=== PATIENT | female | born 1995 | race Hispanic/Latino ===

== ENCOUNTER 2021-05-24 10:54 | Inpatient (IN) | payer MEDICAID ==
[~2021-05-24] VITALS: Ht 149.9 cm; Wt 35.7 kg
[2021-05-24 12:00] LABS: BASOPHILS % (AUTO) 0.1 % (0.0-5.0); EOSINOPHILS % (AUTO) 0.1 % (0.0-8.0); HEMATOCRIT 36.8 % (36-48); LYMPHOCYTES % (AUTO) 20.9 % (21.0-51.0); MEAN CORPUSCULAR HEMOGLOBIN 29.8 pg (27.0-33.0); MEAN CORPUSCULAR HGB CONC 32.3 g/dL (32.0-36.0); MONOCYTES % (AUTO) 6.8 % (3.0-13.0); NEUTROPHILS % (AUTO) 71.9 % (40.0-77.0); PLATELET COUNT (AUTO) 126 K/uL (130-400); RED CELL DISTRIBUTION WIDTH 12.7 % (11.0-15.5); WHITE BLOOD COUNT (AUTO) 8.4 K/uL (4.8-10.8)
[2021-05-24 12:13] LABS: CREATININE 0.5 mg/dL (0.5-1.5); POTASSIUM 3.7 mmol/L (3.5-5.1)
[2021-05-24 12:18] LABS: ALBUMIN 3.8 g/dL (3.5-5.0); BILIRUBIN,TOTAL 0.2 mg/dL (0.2-1.0); TOTAL PROTEIN, SERUM 7.7 g/dL (6.0-8.3)
[2021-05-24] MEDS ORDERED: ONDANSETRON 4MG INJ IVP ONE (16:30)
[2021-05-24] MEDS ORDERED: MORPHINE 2 MG SYG IVP ONE (16:30)
[2021-05-24] MEDS ORDERED: ACETAMINOPHEN 325 MG SUPPOSITORY RC PRN (21:30)
[2021-05-24] MEDS ORDERED: DiphenhydrAMINE HCL 50 MG/ML VIAL IV PRN (21:30)
[2021-05-24] MEDS ORDERED: ONDANSETRON 4MG INJ IV PRN (21:30)
[2021-05-24] MEDS ORDERED: MORPHINE 4 MG SYG IV PRN (21:30)
[2021-05-24] MEDS: DEXTROSE 5 %-0.45 % NACL 1,000 ML IV SCH (23:00)
[2021-05-25] MEDS: ZOSYN 3.375GM+NS 50ML 50 ML IV SCH ×3 (04:48→21:16)
[2021-05-25 06:11] VITALS: BP 109/40
[2021-05-25 07:30] LABS: MEAN CORPUSCULAR HEMOGLOBIN 30.5 pg (27.0-33.0); MEAN CORPUSCULAR HGB CONC 32.6 g/dL (32.0-36.0); MEAN CORPUSCULAR VOLUME 93.6 fL (79-99); RED BLOOD CELL COUNT(AUTO) 3.74 MIL/uL (4.00-5.50); RED CELL DISTRIBUTION WIDTH 12.9 % (11.0-15.5); WHITE BLOOD COUNT (AUTO) 5.1 K/uL (4.8-10.8)
[2021-05-25 07:47] LABS: CREATININE 0.5 mg/dL (0.5-1.5); POTASSIUM 3.9 mmol/L (3.5-5.1)
[2021-05-25 08:00] VITALS: BP 96/59
[2021-05-25] MEDS ORDERED: FAMOTIDINE 20MG VIAL IV SCH (08:00)
[2021-05-25 12:00] VITALS: BP 118/68
[2021-05-25 16:00] VITALS: BP 106/75
[2021-05-25] MEDS: DEXTROSE 5 %-0.45 % NACL 1,000 ML IV SCH (17:30)
[2021-05-25] MEDS ORDERED: [UNRECOGNIZED DRUG - REMARK] TP SCH (17:30)
[2021-05-25] MEDS ORDERED: [UNRECOGNIZED DRUG - CODE] TP (17:48)
[2021-05-25] MEDS ORDERED: GLYC1SOL GT (17:48)
[2021-05-25] MEDS ORDERED: LEVE25PO GT (17:48)
[2021-05-25] MEDS ORDERED: ZINC57OI4 TP (17:48)
[2021-05-25] MEDS ORDERED: CETI-261 GT (17:48)
[2021-05-25] MEDS ORDERED: NYST15PO3 TP (17:48)
[2021-05-25] MEDS ORDERED: SENN8.6T32 GT (17:48)
[2021-05-25] MEDS ORDERED: ESOM40VI IV (17:48)
[2021-05-25] MEDS ORDERED: MONT10TA32 GT (17:48)
[2021-05-25] MEDS ORDERED: ZINC OXIDE OINT 30GM TUBE TP PRN (18:30)
[2021-05-25] MEDS ORDERED: COMPOUND IV MISC 1 EACH IVSOLN MISC PRN (18:30)
[2021-05-25 20:16] VITALS: BP 112/61
[2021-05-25] MEDS ORDERED: [UNRECOGNIZED DRUG - OTHER] IV ONE (21:00)
[2021-05-25] MEDS ORDERED: LEVETIRACETAM IV ONE (21:00)
[2021-05-25 23:41] VITALS: BP 136/52
[2021-05-26 04:03] VITALS: BP 100/50
[2021-05-26] MEDS: ZOSYN 3.375GM+NS 50ML 50 ML IV SCH ×2 (06:00→20:38)
[2021-05-26 06:09] LABS: BASOPHILS % (AUTO) 0.2 % (0.0-5.0); EOSINOPHILS % (AUTO) 0.7 % (0.0-8.0); HEMATOCRIT 33.9 % (36-48); LYMPHOCYTES % (AUTO) 39.5 % (21.0-51.0); MEAN CORPUSCULAR HEMOGLOBIN 30.1 pg (27.0-33.0); MEAN CORPUSCULAR HGB CONC 32.7 g/dL (32.0-36.0); MEAN CORPUSCULAR VOLUME 91.9 fL (79-99); MONOCYTES % (AUTO) 11.2 % (3.0-13.0); NEUTROPHILS % (AUTO) 48.4 % (40.0-77.0); PLATELET COUNT (AUTO) 126 K/uL (130-400); RED BLOOD CELL COUNT(AUTO) 3.69 MIL/uL (4.00-5.50); RED CELL DISTRIBUTION WIDTH 12.6 % (11.0-15.5); WHITE BLOOD COUNT (AUTO) 4.6 K/uL (4.8-10.8)
[2021-05-26 06:19] LABS: ALBUMIN 3.4 g/dL (3.5-5.0); BILIRUBIN,TOTAL 0.4 mg/dL (0.2-1.0); CREATININE 0.4 mg/dL (0.5-1.5); POTASSIUM 3.6 mmol/L (3.5-5.1); TOTAL PROTEIN, SERUM 6.9 g/dL (6.0-8.3)
[2021-05-26 07:30] VITALS: BP 102/84
[2021-05-26] MEDS ORDERED: LEVETIRACETAM 100 MG/ML 5 ML UDCUP JT SCH (09:00)
[2021-05-26] MEDS: PANTOPRAZOLE 40 MG/VIAL IVP SCH (10:15)
[2021-05-26 11:30] VITALS: BP 120/86
[2021-05-26] MEDS ORDERED: SENNOSIDES 8.6 MG TABLET GT PRN (12:00)
[2021-05-26] MEDS: DEXTROSE 5 %-0.45 % NACL 1,000 ML IV SCH (13:30)
[2021-05-26] MEDS ORDERED: GLYCOPYRROLATE 1 MG PEG SCH (14:00)
[2021-05-26 15:30] VITALS: BP 95/48
[2021-05-26] MEDS: GLYCOPYRROLATE 1 MG/5 ML SYRINGE IM SCH (16:45)
[2021-05-26 20:00] VITALS: BP 86/59
[2021-05-26] MEDS: LEVETIRACETAM IV SCH (20:39)
[2021-05-26] MEDS: [UNRECOGNIZED DRUG - OTHER] IV SCH (20:39)
[2021-05-26] MEDS: MONTELUKAST SODIUM 10 MG TAB GT SCH (21:00)
[2021-05-26] MEDS: CETIRIZINE HCL 1 MG PEG SCH (21:00)
[2021-05-26] MEDS: 0.9%NACL 50ML 50 ML IV SCH (21:54)
[2021-05-27] VITALS (21 sets, daily range): BP systolic 85–122; BP diastolic 27–84
[2021-05-27 04:50] LABS: EOSINOPHILS % (AUTO) 1.1 % (0.0-8.0); HEMATOCRIT 33.4 % (36-48); LYMPHOCYTES % (AUTO) 40.9 % (21.0-51.0); MEAN CORPUSCULAR HEMOGLOBIN 29.7 pg (27.0-33.0); MEAN CORPUSCULAR VOLUME 92.8 fL (79-99); MONOCYTES % (AUTO) 9.2 % (3.0-13.0); NEUTROPHILS % (AUTO) 48.6 % (40.0-77.0); PLATELET COUNT (AUTO) 123 K/uL (130-400); RED CELL DISTRIBUTION WIDTH 12.4 % (11.0-15.5); WHITE BLOOD COUNT (AUTO) 4.4 K/uL (4.8-10.8)
[2021-05-27] MEDS: 0.9%NACL 50ML 50 ML IV SCH ×3 (05:20→21:20)
[2021-05-27] MEDS: ZOSYN 3.375GM+NS 50ML 50 ML IV SCH ×3 (05:20→21:20)
[2021-05-27 05:21] LABS: ALBUMIN 3.4 g/dL (3.5-5.0); BILIRUBIN,TOTAL 0.5 mg/dL (0.2-1.0); CREATININE 0.5 mg/dL (0.5-1.5); POTASSIUM 3.3 mmol/L (3.5-5.1); TOTAL PROTEIN, SERUM 6.9 g/dL (6.0-8.3)
[2021-05-27] MEDS ORDERED: POTASSIUM CHLORIDE 20MEQ/100ML 100 ML IV PRN (06:00)
[2021-05-27] MEDS ORDERED: LIDOCAINE HCL-MPF 1% 2ML VIAL IV PRN (06:00)
[2021-05-27] MEDS ORDERED: POTASSIUM CHLORIDE 20MEQ/100ML 100 ML IV ONE (06:45)
[2021-05-27] MEDS: LEVETIRACETAM IV SCH ×2 (10:26→21:20)
[2021-05-27] MEDS: [UNRECOGNIZED DRUG - OTHER] IV SCH ×2 (10:26→21:20)
[2021-05-27] MEDS: PANTOPRAZOLE 40 MG/VIAL IVP SCH (10:26)
[2021-05-27] MEDS: DEXTROSE 5 %-0.45 % NACL 1,000 ML IV SCH (10:27)
[2021-05-27] MEDS ORDERED: FENTANYL CITRATE PF 50 MCG/1 ML 2ML VIAL ONE (11:01)
[2021-05-27] MEDS ORDERED: PROPOFOL 10 MG/ML 20ML VIAL IV ONE (11:01)
[2021-05-27] MEDS: GLYCOPYRROLATE 1 MG/5 ML SYRINGE IM SCH (14:19)
[2021-05-27] MEDS ORDERED: POTASSIUM CHLORIDE 10% ELIXIR 20 MEQ/15 ML UDCUP ONE (19:53)
[2021-05-27] MEDS ORDERED: POTASSIUM CHLORIDE 10% ELIXIR 20 MEQ/15 ML UDCUP PO PRN (20:00)
[2021-05-27] MEDS: CETIRIZINE HCL 1 MG PEG SCH (21:00)
[2021-05-27] MEDS: MONTELUKAST SODIUM 10 MG TAB GT SCH (21:19)
[2021-05-28] VITALS: BP 113/60
[2021-05-28 04:00] VITALS: BP 99/63
[2021-05-28] MEDS: ZOSYN 3.375GM+NS 50ML 50 ML IV SCH (04:58)
[2021-05-28] MEDS: 0.9%NACL 50ML 50 ML IV SCH (04:59)
[2021-05-28 05:28] LABS: BASOPHILS % (AUTO) 0.2 % (0.0-5.0); EOSINOPHILS % (AUTO) 1.4 % (0.0-8.0); HEMATOCRIT 33.6 % (36-48); LYMPHOCYTES % (AUTO) 38.3 % (21.0-51.0); MEAN CORPUSCULAR VOLUME 90.8 fL (79-99); MONOCYTES % (AUTO) 11.4 % (3.0-13.0); NEUTROPHILS % (AUTO) 48.5 % (40.0-77.0); PLATELET COUNT (AUTO) 135 K/uL (130-400); RED CELL DISTRIBUTION WIDTH 12.6 % (11.0-15.5); WHITE BLOOD COUNT (AUTO) 4.8 K/uL (4.8-10.8)
[2021-05-28] MEDS: DEXTROSE 5 %-0.45 % NACL 1,000 ML IV SCH (05:30)
[2021-05-28 05:47] LABS: ALBUMIN 3.4 g/dL (3.5-5.0); BILIRUBIN,TOTAL 0.4 mg/dL (0.2-1.0); CREATININE 0.4 mg/dL (0.5-1.5); TOTAL PROTEIN, SERUM 7.1 g/dL (6.0-8.3)
[2021-05-28 08:00] VITALS: BP 126/63
[2021-05-28] MEDS: [UNRECOGNIZED DRUG - OTHER] IV SCH (09:00)
[2021-05-28] MEDS: LEVETIRACETAM IV SCH (09:00)
[2021-05-28] MEDS: PANTOPRAZOLE 40 MG/VIAL IVP SCH (10:39)
[2021-05-28 12:01] VITALS: BP 118/50
== END 2021-05-28 14:30 | disposition home health service (06) | DRG 252 ==
LOC: EDH 10:54 → OBSVTOIN 10:55 → EDHIP 10:55 → 3DH 05-25 00:06
PROVIDERS: ADMIT Hospitalist; ATTEND Hospitalist
PROC: 0DJ08ZZ Inspection of Upper Intestinal Tract, Via Natural or Artificial Opening Endoscopic (ICD-10-PCS; principal; 2021-05-27)
DX: K94.13 Enterostomy malfunction (principal); E44.0 Moderate protein-calorie malnutrition; K81.9 Cholecystitis, unspecified; K92.2 Gastrointestinal hemorrhage, unspecified; R13.12 Dysphagia, oropharyngeal phase; Z20.822 Contact with and (suspected) exposure to COVID-19; Z68.1 Body mass index [BMI] 19.9 or less, adult; G40.909 Epilepsy, unspecified, not intractable, without status epilepticus; Y83.3 Surgical operation with formation of external stoma as the cause of abnormal reaction of the patient, or of later complication, without mention of misadventure at the time of the procedure; R63.30 Feeding difficulties, unspecified; G80.9 Cerebral palsy, unspecified; E87.6 Hypokalemia; M24.50 Contracture, unspecified joint; Y92.89 Other specified places as the place of occurrence of the external cause
CPT/HCPCS: 36415; 43235; 74176; 80048; 80053; 83605; 85025; 85027; 87040; 87635; A4606; C9113; G0378; J1953; J2405; J2543; J2704; J3010; J3480; J3490; J7030; J7042